=== PATIENT | female | born 1980 | race African-American/Black ===

== ENCOUNTER 2016-10-02 22:59 | Emergency (ER) | payer MEDICAID ==
[~2016-10-02] VITALS: Ht 165.1 cm; Wt 115.0 kg
[~2016-10-02 22:59] MED LIST: AMLO5TAB2 PO; ZOFR4TAB PO
[2016-10-02 23:04] VITALS: BP 129/84; PULSE 78; RESP 16; TEMP 98.7; O2SAT 100
--- NOTE | 2016-10-02 23:26 | PD ---
HPI Chief Complaint: Pain: Acute or Chronic Time Seen by Provider: 23:18 Travel History International Travel<30 days: No Contact w/Intl Traveler<30days: No Traveled to known affect area: No History of Present Illness HPI The patient is a 36-year-old female who complains of a sharp, positional, pleuritic chest pain since yesterday. Changes of position and breathing deeply reproduces her pain. She denies any fever, shortness of breath, hemoptysis, radiation of pain, nausea, vomiting or diarrhea. She does not have a history of heart disease. She states there is no possibility of . She has not smoked, have elevated cholesterol or diabetes. She does have hypertension. She denies any cough. She denies any radiation of pain. PFSH Past Medical History Cardiovascular Problems: Yes (HTN) Diminished Hearing: No Hypertension: Yes Musculoskeletal: Yes (HERNIATED DISC L1 L2) Immunizations Current: No Tetanus Vaccination: < 5 Years Influenza Vaccination: No ?: Not : 3 Para: 3 Tubal Ligation: Yes Past Surgical History Section: Yes (X3) Gynecologic Surgery: Yes ( ) Social History Alcohol Use: Yes (RARE) Tobacco Use: No Substance Use: No Allergies-Medications (Allergen,Severity, Reaction): Coded Allergies: No Known Allergies (Verified , 07/25/16) Reported Meds & Prescriptions Reported Meds & Active Scripts Active Zofran (Ondansetron HCl) 4 Mg Tab 4 Mg PO Q6HR PRN Reported Amlodipine (Amlodipine Besylate) 5 Mg Tab 5 Mg PO DAILY Review of Systems Except as stated in HPI: all other systems reviewed are Neg Physical Exam Narrative GENERAL: The patient is slightly obese, alert, oriented 3 in minimal apparent distress with her chest wall pain. Her vital signs are normal. SKIN: Warm and dry. HEAD: Atraumatic. Normocephalic. EYES: Pupils equal and round. No scleral icterus. No injection or drainage. ENT: No nasal bleeding or discharge. Mucous membranes pink and moist. NECK: Trachea midline. No JVD. CARDIOVASCULAR: Regular rate and rhythm. No murmur appreciated. RESPIRATORY: No accessory muscle use. Clear to auscultation. Breath sounds equal bilaterally. I can completely reproduce the patient's pain by pressing on the costochondral junctions at the lower right and of the sternum. Only one small area shows tenderness. GASTROINTESTINAL: Abdomen soft, non-tender, nondistended. Hepatic and splenic margins not palpable. MUSCULOSKELETAL: No obvious deformities. No clubbing. No cyanosis. No edema. NEUROLOGICAL: Awake and alert. No obvious cranial nerve deficits. Motor grossly within normal limits. Normal speech. PSYCHIATRIC: Appropriate mood and affect; insight and judgment normal. Data Data Last Documented VS Vital Signs Date Time Temp Pulse Resp B/P Pulse Ox O2 Delivery O2 Flow Rate FiO2 10/03/16 00:16 66 18 132/76 99 Room Air 10/02/16 23:04 98.7 Orders Electrocardiogram (10/02/16 23:27) Basic Metabolic Panel (Bmp) (10/02/16 23:27) Ckmb (Isoenzyme) Profile (10/02/16 23:27) Complete Blood Count With Diff (10/02/16 23:27) Magnesium (Mg) (10/02/16 23:27) Troponin I (10/02/16 23:27) Ecg Monitoring (10/02/16 23:27) Iv Access Insert/Monitor (10/02/16 23:27) Oximetry (10/02/16 23:27) Oxygen Administration (10/02/16 23:27) Sodium Chloride 0.9% Flush (Ns Flush) (10/02/16 23:30) Chest, Pa & Lat (10/02/16 23:27) CKMB (10/02/16 23:40) CKMB% (10/02/16 23:40) Labs Laboratory Tests Test 10/02/16 23:40 White Blood Count 8.4 TH/MM3 Red Blood Count 4.53 MIL/MM3 Hemoglobin 13.4 GM/DL Hematocrit 40.6 % Mean Corpuscular Volume 89.7 FL Mean Corpuscular Hemoglobin 29.6 PG Mean Corpuscular Hemoglobin 33.0 % Concent Red Cell Distribution Width 13.5 % Platelet Count 270 TH/MM3 Mean Platelet Volume 8.3 FL Neutrophils (%) (Auto) 56.0 % Lymphocytes (%) (Auto) 34.7 % Monocytes (%) (Auto) 7.7 % Eosinophils (%) (Auto) 1.2 % Basophils (%) (Auto) 0.4 % Neutrophils # (Auto) 4.8 TH/MM3 Lymphocytes # (Auto) 2.9 TH/MM3 Monocytes # (Auto) 0.6 TH/MM3 Eosinophils # (Auto) 0.1 TH/MM3 Basophils # (Auto) 0.0 TH/MM3 CBC Comment DIFF FINAL Differential Comment Sodium Level 139 MEQ/L Potassium Level 3.9 MEQ/L Chloride Level 104 MEQ/L Carbon Dioxide Level 29.2 MEQ/L Anion Gap 6 MEQ/L Blood Urea Nitrogen 17 MG/DL Creatinine 1.10 MG/DL Estimat Glomerular Filtration 68 ML/MIN Rate Random Glucose 98 MG/DL Calcium Level 9.2 MG/DL Magnesium Level 2.1 MG/DL Total Creatine Kinase 313 U/L Creatine Kinase MB 0.9 NG/ML Creatine Kinase MB % 0.3 % Troponin I LESS THAN 0.02 NG/ML MDM Medical Decision Making Medical Screen Exam Complete: Yes Emergency Medical Condition: Yes Medical Record Reviewed: Yes Interpretation(s) The EKG is normal with normal sinus rhythm rate of 64. The chest x-ray is normal. The cardiac enzymes are normal. The basic metabolic profile shows a grade and 1.1 with a GFR of 68 but is otherwise unremarkable. Differential Diagnosis Costochondritis, pulmonary embolushighly unlikely, pneumoniahighly unlikely, acute coronary syndromehighly unlikely, electrolyte disorder, hypo-/ hyperglycemia, anemia Narrative Course The patient has costochondritis. Plan: She'll be given Motrin 6 mg 3 times daily and follow-up with her primary care physician next week. Diagnosis Primary Impression: Costochondritis, acute Additional Instructions: As we discussed, take the Motrin regularly, 1 tablet 3 times daily. After 3 or 4 days as we'll give you a high anti-inflammatory level and the pain usually goes away. Follow-up next week with your primary care physician. Med/Other Pt SpecificInfo: Prescription(s) given Scripts Ibuprofen 600 Mg [id number] Mg PO TID #45 TAB Ref 0 Prov:Anmol Nelson MD 10/03/16 Disposition: 01 DISCHARGE HOME Condition: Stable Anmol Nelson MD Oct 02, 2016 23:26
[2016-10-02] MEDS ORDERED: SODIUM CHLORIDE 0.9% FLUSH 5 ML FLUSH IVF PRN (23:30)
[2016-10-02 23:46] LABS: AUTOMATED NEUTROPHIL # 4.8 TH/MM3 (1.8-7.7); BASOPHIL % 0.4 % (0.0-2.0); EOSINOPHIL # 0.1 TH/MM3 (0-0.4); EOSINOPHIL % 1.2 % (0.0-4.0); HEMATOCRIT 40.6 % (35.0-46.0); HEMO FLAGS DIFF FINAL; LYMPH % 34.7 % (9.0-44.0); LYMPHOCYTE # 2.9 TH/MM3 (1.0-4.8); MEAN CELL VOLUME 89.7 FL (80.0-100.0); MEAN CORPUSCULAR HEMOGLOBIN 29.6 PG (27.0-34.0); MONO % 7.7 % (0.0-8.0); PLATELET COUNT 270 TH/MM3 (150-450); RED BLOOD COUNT 4.53 MIL/MM3 (4.00-5.30); RED CELL DISTRIBUTION WIDTH 13.5 % (11.6-17.2); WHITE BLOOD COUNT 8.4 TH/MM3 (4.0-11.0)
[2016-10-02 23:51] VITALS: RESP 18; O2SAT 98
[2016-10-02 23:53] LABS: CHLORIDE 104 MEQ/L (98-107); POTASSIUM 3.9 MEQ/L (3.5-5.1); SODIUM (NA) 139 MEQ/L (136-145)
[2016-10-02 23:56] LABS: ANION GAP 6 MEQ/L (5-15); BICARBONATE 29.2 MEQ/L (21.0-32.0); BLOOD UREA NITROGEN 17 MG/DL (7-18); MAGNESIUM 2.1 MG/DL (1.5-2.5)
[2016-10-03] LABS: GLOMERULAR FILTRATION RATE 68 ML/MIN (>89)
--- NOTE | 2016-10-03 00:02 | RADHPO ---
EXAM DATE/TIME: 10/02/2016 23:41 [facility] COMPARISON: No previous studies available for comparison. INDICATIONS : Chest pain. MEDICAL HISTORY : None. SURGICAL HISTORY : None. ENCOUNTER: Initial ACUITY: 2 days PAIN SCORE: 9/10 LOCATION: Bilateral chest FINDINGS: PA and lateral views of the chest demonstrate the lungs to be symmetrically aerated without evidence of mass, infiltrate or effusion. The cardiomediastinal contours are unremarkable. Osseous structure s are intact. CONCLUSION: Normal examination. Grayson Hubbard MD on October 03, 2016 at 0:00 Board Certified Radiologist. This report was verified electronically.
[2016-10-03 00:03] LABS: CREATINE KINASE 313 U/L (26-192)
[2016-10-03 00:15] LABS: CKMB 0.9 NG/ML (0.5-3.6)
[2016-10-03 00:16] VITALS: BP 132/76; PULSE 66; RESP 18; O2SAT 99
[2016-10-03] MEDS ORDERED: IBUP-232 PO (00:42)
[2016-10-03] MEDS ORDERED: KETOROLAC TROMETHAMINE 60 MG/2 ML (IM) VIAL IVP ONE (00:45)
[2016-10-03 01:13] VITALS: BP 131/76; PULSE 72; RESP 18; O2SAT 99
--- NOTE | 2016-10-03 12:09 | EKG ---
Date Performed: 10/02/2016 Time Performed: 23:14:30 PTAGE: 36 years EKG: Sinus rhythm . Normal ECG NO PREVIOUS TRACING DOCTOR: Pranav Ny Interpretating Date/Time 10/03/2016 12:06:52
== END 2016-10-03 01:14 | disposition home or self-care (01) ==
LOC: PHED 22:59
DX: M94.0 Chondrocostal junction syndrome [Tietze] (principal); I10 Essential (primary) hypertension; Z79.899 Other long term (current) drug therapy
CPT/HCPCS: 71020; 80048; 82550; 82552; 83735; 84484; 85025; 93005; 96374; 99284; J1885

== ENCOUNTER 2017-06-13 11:23 | Emergency (ER) | payer MEDICAID ==
[~2017-06-13] VITALS: Ht 165.1 cm; Wt 118.5 kg
[~2017-06-13 11:23] MED LIST changes: +IBUP-232 PO
[2017-06-13 11:26] VITALS: BP 140/70; PULSE 69; RESP 18; TEMP 97.6; O2SAT 98
[2017-06-13] MEDS ORDERED: HYDR25TA5 PO (11:35)
--- NOTE | 2017-06-13 12:24 | PD ---
HPI Chief Complaint: GI Complaint Time Seen by Provider: 11:33 Travel History International Travel<30 days: No Contact w/Intl Traveler<30days: No Traveled to known affect area: No History of Present Illness HPI Patient is a 36-year-old female presents emergency department for evaluation of hematuria. Patient states that she had noticed some blood on the toilet paper when wiping after she had gone urination. She also endorses some mild dysuria for the past few days. States her last period was 2 weeks ago. Is unsure if she could be . Denies any abdominal pain denies any nausea vomiting diarrhea constipation or blood in the stool. Denies any vaginal discharge, states that the bleeding could be coming from vagina. Symptoms are mild, constant, she cannot elicit any alleviating or exacerbating factors. PFSH Past Medical History Cardiovascular Problems: Yes (HTN) Diminished Hearing: No Hypertension: Yes Musculoskeletal: Yes (HERNIATED DISC L1 L2) Immunizations Current: No ?: Not LMP: 06/2017 : 3 Para: 3 Tubal Ligation: Yes Past Surgical History Section: Yes (X3) Gynecologic Surgery: Yes ( ) Social History Alcohol Use: Yes (RARE) Tobacco Use: No Substance Use: No Allergies-Medications (Allergen,Severity, Reaction): Coded Allergies: No Known Allergies (Verified , 06/13/17) Reported Meds & Prescriptions Reported Meds & Active Scripts Active Keflex (Cephalexin) 500 Mg Cap 500 Mg PO Q6H 3 Days Flagyl (Metronidazole) 500 Mg Tab 500 Mg PO BID 7 Days Reported Hydrochlorothiazide 25 Mg Tab 25 Mg PO DAILY Amlodipine (Amlodipine Besylate) 5 Mg Tab 20 Mg PO DAILY Review of Systems Except as stated in HPI: all other systems reviewed are Neg Physical Exam Narrative GENERAL: Well-nourished, well-developed patient. In no obvious distress. SKIN: Focused skin assessment warm/dry. HEAD: Normocephalic. EYES: No scleral icterus. No injection or drainage. NECK: Supple, trachea midline. No JVD or lymphadenopathy. CARDIOVASCULAR: Regular rate and rhythm without murmurs, gallops, or rubs. RESPIRATORY: Breath sounds equal bilaterally. No accessory muscle use. GASTROINTESTINAL: Abdomen soft, non-tender, nondistended. No CVA tenderness, no bimanual tenderness. GENITOURINARY: Exam was performed with female nurse applier present all times. There is mild fishy odor to a whitish discharge. Nonfriable cervix. Nontender exam. MUSCULOSKELETAL: No cyanosis, or edema. BACK: Nontender without obvious deformity. No CVA tenderness. Data Data Last Documented VS Vital Signs Date Time Temp Pulse Resp B/P (MAP) Pulse Ox O2 Delivery O2 Flow Rate FiO2 06/13/17 11:26 97.6 69 18 140/70 (93) 98 Orders Orders Urinalysis - C+S If Indicated (06/13/17 12:14) Wet Prep Profile (06/13/17 12:14) Gc And Chlamydia Pcr (06/13/17 12:14) Ed Urine Pregnancytest Poc (06/13/17 12:14) Labs Laboratory Tests Test 06/13/17 12:30 Urine Collection Type CLEAN CATCH Urine Color YELLOW Urine Turbidity SLIGHTY CLOUDY Urine pH 5.5 Urine Specific [place] 1.026 Urine Protein TRACE mg/dL Urine Glucose (UA) NEG mg/dL Urine Ketones NEG mg/dL Urine Occult Blood LARGE Urine Nitrite NEG Urine Bilirubin NEG Urine Leukocyte Esterase NEG Urine RBC 25-49 /hpf Urine WBC 3-5 /hpf Urine Squamous Epithelial Cells 0-5 /hpf Urine Amorphous Sediment FEW Microscopic Urinalysis Comment CULT NOT INDICATED Clue Cells (Wet Prep) NONE SEEN Vaginal Trichomonas (Wet Prep) NONE SEEN Vaginal Yeast (Wet Prep) NONE SEEN MDM Medical Decision Making Medical Screen Exam Complete: Yes Emergency Medical Condition: Yes Differential Diagnosis BV, CV, UTI, . Narrative Course 36-year-old female presents with blood on the paper when she wipes after urination. No pain. She does have some mild discomfort on urination. Exam does reveal hematuria but no blood was seen in the vaginal vault. No pain. Kidney stone could be considered but given her lack of pain there is no indication for CAT scan imaging at this time. Discussed with her differential diagnosis remains a bacterial vaginosis versus urinary tract infection. We'll cover for both. Discussed need follow-up with [facility] which she is are he establish with. Discussed return to ED criteria and symptomatic management home. Diagnosis Primary Impression: Bacterial vaginosis Med/Other Pt SpecificInfo: Prescription(s) given Scripts Cephalexin (Keflex) 500 Mg Cap 500 MG PO Q6H for Infection for 3 Days, #12 CAP 0 Refills Prov: Tristan Flores MD 06/13/17 Metronidazole (Flagyl) 500 Mg Tab 500 MG PO BID for Infection for 7 Days, #14 TAB 0 Refills Prov: Tristan Flores MD 06/13/17 Disposition: 01 DISCHARGE HOME Condition: Stable Tristan Flores MD Jun 13, 2017 12:24
[2017-06-13 12:43] LABS: BLOOD, URINE LARGE (NEG); GLUCOSE,URINE NEG (NEG); KETONE, URINE NEG (NEG); NITRITE,URINE NEG (NEG); PH, URINE 5.5 (5.0-8.5)
[2017-06-13 12:46] LABS: METHOD OF COLLECTION CLEAN CATCH; URINE COLOR YELLOW (YELLW/STRAW)
[2017-06-13 12:48] LABS: COMMENT (UR) CULT NOT INDICATED; CULTURE IF INDICATED CULT NOT INDICATED; SQUAMOUS EPITHELIAL CELL URINE 0-5 /hpf (0-5)
[2017-06-13] MEDS ORDERED: METR-1 PO (12:59)
[2017-06-13] MEDS ORDERED: CEPH-460 PO (13:01)
[2017-06-13 17:39] LABS: CHLAMYDIA PCR NOT DETECTED (NOT DETECT); NEISSERIA PCR NOT DETECTED (NOT DETECT)
== END 2017-06-13 13:13 | disposition home or self-care (01) ==
LOC: PHED 11:23
DX: N76.0 Acute vaginitis (principal); R31.9 Hematuria, unspecified; R30.0 Dysuria; I10 Essential (primary) hypertension; Z86.79 Personal history of other diseases of the circulatory system; Z87.39 Personal history of other diseases of the musculoskeletal system and connective tissue
CPT/HCPCS: 81001; 84703; 87210; 87491; 87591; 99284

== ENCOUNTER 2018-01-31 07:02 | Emergency (ER) | payer MEDICAID ==
[~2018-01-31] VITALS: Ht 165.1 cm; Wt 110.0 kg
[~2018-01-31 07:02] MED LIST changes: +HYDR25TA5 PO; +MELO15TA20 PO; +PERC10TA27 PO; -ZOFR4TAB PO
[2018-01-31 07:06] VITALS: BP 133/81; PULSE 63; RESP 16; TEMP 98.2; O2SAT 99
--- NOTE | 2018-01-31 07:32 | PD ---
HPI Chief Complaint: [employer] Problem/Complaint Time Seen by Provider: 07:20 Travel History International Travel<30 days: No Contact w/Intl Traveler<30days: No Traveled to known affect area: No History of Present Illness HPI This 37-year-old female says she has had vaginal irritation for the last 3 or 4 days. She has not been on any antibiotics. She does not have diabetes. She does have a history of hypertension. She says there is no chance of . She has not had fever or chills. She is not having abdominal pain PFSH Past Medical History Cardiovascular Problems: Yes (HTN) Diminished Hearing: No Hypertension: Yes Musculoskeletal: Yes (HERNIATED DISC L1 L2) Immunizations Current: No Influenza Vaccination: No ?: Not LMP: 2 WEEKS : 3 Para: 3 Tubal Ligation: Yes Past Surgical History Section: Yes (X3) Gynecologic Surgery: Yes ( ) Social History Alcohol Use: Yes (RARE) Tobacco Use: No Substance Use: No Allergies-Medications (Allergen,Severity, Reaction): Coded Allergies: No Known Allergies (Verified Adverse Reaction, Unknown, 01/31/18) Reported Meds & Prescriptions Reported Meds & Active Scripts Active Reported Hydrochlorothiazide 25 Mg Tab 25 Mg PO DAILY Amlodipine (Amlodipine Besylate) 5 Mg Tab 20 Mg PO DAILY Review of Systems Except as stated in HPI: all other systems reviewed are Neg General / Constitutional: No: Fever, Chills Eyes: No: Diploplia, Blurred Vision HENT: No: Headaches Cardiovascular: No: Chest Pain or Discomfort, Palpitations Respiratory: No: Cough, Shortness of Breath Genitourinary: Positive: Discharge, No: Urgency, Frequency Musculoskeletal: No: Myalgias Skin: Positive Itching, No Rash Neurologic: No: Weakness Psychiatric: No: Anxiety, Depression Endocrine: No: Heat Intolerance Physical Exam Narrative GENERAL: Well-developed female SKIN: Focused skin assessment warm/dry. HEAD: Atraumatic. Normocephalic. EYES: Pupils equal and round. No scleral icterus. No injection or drainage. ENT: No nasal bleeding or discharge. Mucous membranes pink and moist. NECK: Trachea midline. No JVD. GASTROINTESTINAL: Abdomen soft, non-tender, nondistended. Hepatic and splenic margins not palpable. Pelvic: There is whitish discharge. There is no pain with bimanual exam no masses are felt MUSCULOSKELETAL: No obvious deformities. No clubbing. No cyanosis. No edema. NEUROLOGICAL: Awake and alert. No obvious cranial nerve deficits. Motor grossly within normal limits. Normal speech. PSYCHIATRIC: Appropriate mood and affect; insight and judgment normal. Data Data Last Documented VS Vital Signs Date Time Temp Pulse Resp B/P (MAP) Pulse Ox O2 Delivery O2 Flow Rate FiO2 01/31/18 07:06 98.2 63 16 133/81 (98) 99 Orders Orders Wet Prep Profile (01/31/18 07:32) Labs Laboratory Tests Test 01/31/18 07:45 Clue Cells (Wet Prep) NONE SEEN Vaginal Trichomonas (Wet Prep) NONE SEEN Vaginal Yeast (Wet Prep) NONE SEEN MDM Medical Decision Making Medical Screen Exam Complete: Yes Emergency Medical Condition: Yes Medical Record Reviewed: Yes Differential Diagnosis Differential includes Trichomonas, vaginosis, yeast infection Narrative Course Patient does have vaginitis on examination. Her wet prep is negative. She was here previously with bacterial vaginosis and says the symptoms seem similar. I will prescribe Flagyl and recommend that she use a topical antifungal. Diagnosis Primary Impression: Vaginitis Qualified Codes: N76.0 - Acute vaginitis Scripts Metronidazole (Flagyl) 500 Mg Tab 500 MG PO TID for Infection for 7 Days, TAB 0 Refills Prov: Hussein Palma MD 01/31/18 Disposition: 01 DISCHARGE HOME Condition: Stable Hussein Palma MD January 31, 2018 07:32
[2018-01-31] MEDS ORDERED: METR-1 PO (08:02)
== END 2018-01-31 08:21 | disposition home or self-care (01) ==
LOC: PHED 07:02
DX: N76.0 Acute vaginitis (principal); I10 Essential (primary) hypertension
CPT/HCPCS: 87210; 99283